=== PATIENT | male | born 1985 | race Caucasian/White ===

== ENCOUNTER 2019-08-29 16:11 | Inpatient (IN) | payer OTHER ==
[~2019-08-29] VITALS: Ht 182.9 cm; Wt 72.6 kg
[2019-08-29 16:12] VITALS: BP 145/81
[2019-08-29] MEDS ORDERED: NOHOMEMEDICATIONS (16:20)
[2019-08-29 16:44] LABS: ABSOLUTE NEUTROPHILS 4.6 thou/uL (1.4-8.2); BASOPHILS 0.4 % (0.0-2.0); EOSINOPHILS 1.1 % (0.0-3.0); HEMOGLOBIN 14.7 gm/dL (14.0-18.0); LYMPHOCYTES 22.1 % (24.0-44.0); MCH 29.4 pg (26.0-34.0); MCHC 34.2 g/dL (28.0-37.0); MCV 86.1 fL (80.0-100.0); MONOCYTES 5.6 % (1.0-8.0); PLATELET COUNT 185 thou/uL (150-400); POLYS 70.8 % (36.0-66.0); RBC 4.99 mil/uL (4.50-6.00); RDW 13.6 % (10.5-14.5); WBC 6.5 thou/uL (4.0-11.0)
[2019-08-29 16:56] LABS: APTT 25.9 Seconds (24.5-32.8); PROTIME 10.3 Seconds (9.3-11.4)
[2019-08-29 17:05] LABS: CALCIUM 8.9 mg/dL (8.5-10.1); CREATININE 1.1 mg/dL (0.7-1.3); POTASSIUM 4.1 mmol/L (3.5-5.1); TOTAL BILIRUBIN 0.7 mg/dL (<0.1-1.0); TOTAL PROTEIN 7.2 g/dL (6.4-8.2)
[2019-08-29 20:56] VITALS: BP 145/90
[2019-08-30 04:10] VITALS: BP 117/62
[2019-08-30 05:24] LABS: HEMATOCRIT 36.4 % (42.0-52.0); MCH 29.8 pg (26.0-34.0); MCHC 34.5 g/dL (28.0-37.0); MCV 86.4 fL (80.0-100.0); RBC 4.21 mil/uL (4.50-6.00); RDW 13.2 % (10.5-14.5); WBC 8.9 thou/uL (4.0-11.0)
[2019-08-30 05:28] LABS: ALBUMIN 3.4 g/dL (3.4-5.0); CALCIUM 8.2 mg/dL (8.5-10.1); CREATININE 0.9 mg/dL (0.7-1.3); MAGNESIUM 1.7 mg/dL (1.8-2.4); PHOSPHORUS 2.8 mg/dL (2.5-4.9); POTASSIUM 3.9 mmol/L (3.5-5.1)
[2019-08-30 05:29] LABS: HEMOGLOBIN 12.5 gm/dL (14.0-18.0)
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
[2019-08-30 07:46] LABS: URINE BILIRUBIN NEGATIVE (Negative); URINE BLOOD NEGATIVE (Negative); URINE CLARITY CLEAR; URINE COLOR YELLOW; URINE GLUCOSE-RANDOM* NEGATIVE (Negative); URINE KETONES NEGATIVE (Negative); URINE LEUKOCYTES NEGATIVE (Negative); URINE NITRITE NEGATIVE (Negative); URINE PROTEIN (DIPSTICK) NEGATIVE (Negative); URINE SPECIFIC GRAVITY <= 1.005 (1.005-1.035); URINE UROBILINOGEN 0.2 E.U./dl (0.2-1.0)
[2019-08-30 08:03] LABS: AMP/METHAMP Negative (Negative); BARBITURATES Negative (Negative); BENZODIAZEPINES Negative (Negative); COCAINE Negative (Negative); METHADONE Negative (Negative); OPIATES Negative (Negative); PCP Negative (Negative)
[2019-08-30 15:30] VITALS: BP 140/81
[2019-08-30 19:30] VITALS: BP 132/75
--- NOTE | 2019-08-30 19:50 | NUR ---
PATIENT ARRIVED AT 1526. PT ALERT XS 4. NO PAIN PLEASANT AND COOPERATIVE. CONT OF B&B USES URINAL. HAS WRAP TO RIGHT HAND AND IMMBOLIZER TO RIGHT LE. HEMOVAC WITH APPROX 2-3 CC IN IT. IV FLUIDS INFUSING ORDERED. PT IS REGULAR DIET. VS= 98.1 16 86 140/81 O2 SAT 94% RA.
--- NOTE | 2019-08-31 00:54 | NUR ---
ASSESSMENT COMPLETED. PT IS ALERT AND ORIENTED. S/P R KNEE I/D AND CLOSURE WELL PINNING OF R THIRD FINGER. POST OP DRSG IN PLACE. IMMOBILIZER TO RLE.TEDS AND SCDS IN PLACE. VSS. PT VOIDING OKAY PER URINAL. PAIN IS NOT BAD PER PATIENT. GIVEN TYLENOL SCHEDULED. HE REFUSED THE MIDNOC TORADOL.AFEBRILE. WBAT TO RLE.NO CONCERNS AT THIS TIME.CALLS APPROPRIATELY.WILL CONTINUE WITH POC TILL EOS.
[2019-08-31 05:03] VITALS: BP 118/60
[2019-08-31 05:52] LABS: HEMATOCRIT 32.8 % (42.0-52.0); HEMOGLOBIN 11.2 gm/dL (14.0-18.0)
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
[2019-08-31 10:51] VITALS: BP 118/60
--- NOTE | 2019-08-31 12:08 | NUR ---
Following for d/c planning. Spoke with Yessenia Escalante with [employer] for Workmen Comp benefits. She has approved walker for home use and will have DME company [employer]. Provided requested clinical information.
[2019-08-31 13:38] VITALS: BP 118/60
--- NOTE | 2019-08-31 14:05 | NUR ---
assumed pt care this am, VS stable, dressing on the right hand is c/d/i. Right leg is with an immobilizer, JEANA hose, kerlix, ABD and xero foam. Ernest are intact, hemovac draning serosanguinous fluid and hemo vac removed. Dressing changed and immobilizer put back on. DC instructions and prescriptions given to the pt. POC followed, no signs or verbalizations of distress have been noted. 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
== END 2019-08-31 15:09 | disposition home or self-care (01) | DRG 502 ==
LOC: ER 16:11 → EROBS 18:23 → 4S 18:23 → EROBS 20:32 → TBA 08-30 07:51 → 4S 08-30 16:27 → ENTRNSPT 08-31 15:04 → EDTRNSPTSTS 08-31 15:06 → 4S 08-31 15:09
PROVIDERS: Emergency Medicine; Orthopaedic Surgery; ADMIT Surgery
DX: S62.612A Displaced fracture of proximal phalanx of right middle finger, initial encounter for closed fracture (principal); S61.411A Laceration without foreign body of right hand, initial encounter; S81.011A Laceration without foreign body, right knee, initial encounter; S89.81XA Other specified injuries of right lower leg, initial encounter; X58.XXXA Exposure to other specified factors, initial encounter; Y93.89 Activity, other specified; Y92.89 Other specified places as the place of occurrence of the external cause; Y99.8 Other external cause status; Z80.8 Family history of malignant neoplasm of other organs or systems; Z23 Encounter for immunization
CPT/HCPCS: 10195; 50010; 50101; 50386; 51275; 51412; 56525; 56526; 56527; 57091; 57180; 62110; 62900; 70005